=== PATIENT | female | born 1990 | race Caucasian/White ===

== ENCOUNTER 2019-10-04 07:06 | Emergency (ER) | payer BC ==
--- NOTE | 2019-10-04 08:10 | ED ---
Skin Complaint - HPI Summary HPI Summary: Patient is a 28-year-old female who presents emergency department for diffuse rash yesterday. Patient notes a rash started on her arms and has progressed to her whole body. Patient notes that she finished a course of Bactrim 2 days ago for a facial abscess. Patient states rash is mildly itchy. Denies associated symptoms of chest pain, shortness of breath. Patient otherwise denies any new exposures. She does work at a local assisted. Symptoms are noted severity. No current modifying factors. - History of Current Complaint Chief Complaint: EDRashSkinAbscess Time Seen by Provider: 10/04/19 08:05 Stated Complaint: BODY RASH PER PT Hx Obtained From: Patient Pain Intensity: 0 - Allergy/Home Medications Allergies/Adverse Reactions: Allergies Allergy/AdvReac Type Severity Reaction Status Date / Time cefprozil [From Cefzil] Allergy Hives Verified 10/04/19 07:14 sulfamethoxazole Allergy Hives Verified 10/04/19 09:08 [From Bactrim] trimethoprim [From Bactrim] Allergy Hives Verified 10/04/19 09:08 PMH/Surg Hx/FS Hx/Imm Hx Previously Healthy: Yes Infectious Disease History: No Infectious Disease History: Denies: Traveled Outside the [place] in Last 30 Days - Family History Known Family History: Positive: Non-Contributory - Social History Occupation: Employed Full-time Lives: With Family Review of Systems Constitutional: Negative Negative: Fever Eyes: Negative ENT: Negative Cardiovascular: Negative Respiratory: Negative Gastrointestinal: Negative Positive: Rash Neurological: Negative All Other Systems Reviewed And Are Negative: Yes Physical Exam Triage Information Reviewed: Yes Vital Signs On Initial Exam: Initial Vitals Temp Pulse Resp BP Pulse Ox 98.3 F 100 16 137/90 98 10/04/19 07:08 10/04/19 07:08 10/04/19 07:08 10/04/19 07:08 10/04/19 07:08 Vital Signs Reviewed: Yes Appearance: Positive: Well-Appearing - Pt. sitting up in bed in NAD. Pleasant. Skin: Positive: Warm, Dry, Other - Diffuse blothy, erythematous, slight raised rash noted to trunck, arms and legs. Nonblanchable. Negative nikolsky sign. No rash to oral mucosa or palms/soles. Eyes: Positive: Normal, EOMI, CATHERINE ENT: Positive: Pharynx normal Neck: Positive: Supple Respiratory/Lung Sounds: Positive: Clear to Auscultation, Breath Sounds Present. Negative: Wheezes Cardiovascular: Positive: Normal, RRR Neurological: Positive: Normal, CN Intact II-III Psychiatric: Positive: Affect/Mood Appropriate Procedures - Sedation Patient Received Moderate/Deep Sedation with Procedure: No Diagnostics - Vital Signs Vital Signs Temp Pulse Resp BP Pulse Ox 10/04/19 07:08 98.3 F 100 16 137/90 98 - Laboratory Lab Statement: Any lab studies that have been ordered have been reviewed, and results considered in the medical decision making process. Course/Dx - Course Course Of Treatment: Patient with diffuse rash. Suspect rashes secondary to recent sulfa use. We'll place patient on a course of steroids, antihistamines and H2 neetu. Advised to follow-up with PCP on Tuesday for recheck. Advised to avoid sulfa in the future. We'll return to the ER for increased rash, rash to mouth/lip's, peeling skin or if concerned. Patient understands and agrees with plan. - Differential Diagnoses - Skin Complaint Differential Diagnoses: Abscess, Allergic Reaction, Anaphylaxis, Cellulitis, Eczema - Diagnoses Provider Diagnoses: Allergic drug rash due to sulfonamide, Rash Discharge ED - Sign-Out/Discharge Documenting (check all that apply): Patient Departure - Discharge Plan Condition: Good Disposition: HOME Prescriptions: Famotidine [Pepcid] 40 mg PO DAILY #5 tablet predniSONE TAB* [Deltasone TAB*] 50 mg PO DAILY #5 tab Patient Education Materials: Acute Rash (ED), Antibiotic Medication Allergy (ED ) Forms: *Work Release Referrals: [facility] [Outside] Additional Instructions: Schedule a follow up appointment with PCP for Tuesday for recheck Avoid Bactrim in the future Medication as directed Take benadryl or antihistamine (zyrtec, omar) as directed Return to ER for fever, rash to mouth/lips, peeling skin or if concerned - Billing Disposition and Condition Condition: GOOD Disposition: Home - Attestation Statements Provider Attestation: pt seen by midlevel provider independently, based on their assessment, it was not necessary to present the case to me but I was available for consultation. I did not form a physician-patient relationship with the patient. The chart however, has been reviewed. am signing this note strictly in an administrative capacity.
[2019-10-04] MEDS ORDERED: diPHENhydraMINE PO* 25 MG PO ONE (08:29)
[2019-10-04] MEDS ORDERED: Famotidine TAB* 20 MG PO ONE (08:29)
[2019-10-04 09:26] VITALS: BP 143/85
== END 2019-10-04 09:11 | disposition home or self-care (01) ==
LOC: ED 07:06
DX: L27.0 Generalized skin eruption due to drugs and medicaments taken internally (principal); T37.0X5A Adverse effect of sulfonamides, initial encounter; Y92.9 Unspecified place or not applicable; Z88.1 Allergy status to other antibiotic agents; Z88.2 Allergy status to sulfonamides
CPT/HCPCS: 99282; A9270-GY; J7512